=== PATIENT | female | born 1990 | race Caucasian/White ===

== ENCOUNTER 2022-06-05 09:05 | Emergency (ER) | payer OTHER ==
--- NOTE | 2022-06-05 09:29 | ERPHSYRPT ---
- History of Present Illness Time Seen by Provider: 06/05/22 09:23 Source: patient Exam Limitations: no limitations Patient Subjective Stated Complaint: Foreign body-Tampon stuck in vagina Triage Nursing Assessment: Patient ambulated back to ED and transferred self to bed. Patient A+O X3. Patient's skin pink, warm and dry. Patient states she went to bed last night with a tampon inserted, but woke up this am and noted no tampon. Patient states she did urinate in the middle of the night a few times. Patient concerned tampon may stuck in vagina. Patient denies pain or discomfort. Physician History: Foreign body-Tampon stuck in vagina Patient is 31-year-old female came to the emergency room with complaint that there might be a chance that tampon might be stuck in her vagina. She was trying to remove the tampon and then she did not feel like it came out. So she came to the emergency room. She denies any other symptoms. Timing/Duration: today Severity: mild Associated Symptoms: denies symptoms Allergies/Adverse Reactions: No Known Drug Allergies Allergy (Unverified 06/05/22 09:12) Home Medications: No Reportable Medications [No Reported Medications] 06/05/22 [History] Hx Influenza Vaccination/Date Given: No Hx Pneumococcal Vaccination/Date Given: No Immunizations Up to Date: Yes Travel Risk - International Travel Have you traveled outside of the country in past 3 weeks: No - Coronavirus Screening Are you exhibiting any of the following symptoms?: No Close contact with a COVID-19 positive Pt in past 14-21 Days: No - Vaccine Status Have you recieved a Covid-19 vaccination: Yes Superintendent [employer]: [employer] - Vaccination Dates Date of 2cond Vaccination (if applicable): na - Review of Systems Constitutional: No Fever, No Chills Eyes: No Symptoms Ears, Nose, & Throat: No Symptoms Respiratory: No Cough, No Dyspnea Cardiac: No Chest Pain, No Edema, No Syncope Abdominal/Gastrointestinal: No Abdominal Pain, No Nausea, No Vomiting, No Diarrhea Genitourinary Symptoms: No Dysuria Musculoskeletal: No Back Pain, No Neck Pain Skin: No Rash Neurological: No Dizziness, No Focal Weakness, No Sensory Changes Psychological: No Symptoms Endocrine: No Symptoms All Other Systems: Reviewed and Negative - Past Medical History Pertinent Past Medical History: No Neurological History: No Pertinent History ENT History: No Pertinent History Cardiac History: No Pertinent History Respiratory History: No Pertinent History Endocrine Medical History: No Pertinent History Musculoskeletal History: No Pertinent History GI Medical History: No Pertinent History History: No Pertinent History Psycho-Social History: No Pertinent History Female Reproductive Disorders: No Pertinent History - Past Surgical History Past Surgical History: No Neuro Surgical History: No Pertinent History Cardiac: No Pertinent History Respiratory: No Pertinent History Gastrointestinal: No Pertinent History Genitourinary: No Pertinent History Musculoskeletal: No Pertinent History Female Surgical History: Section Other Surgical History: C section X 2 - Social History Smoking Status: Current every day smoker How long have you smoked: years Exposure to second hand smoke: No Drug Use: none Patient Lives Alone: No - Female History Hx Last Menstrual Period: currently Hx Now: No - Nursing Vital Signs Nursing Vital Signs: Initial Vital Signs Temperature 96.5 F 06/05/22 09:13 Pain Scale Pain Intensity 0 - Physical Exam General Appearance: no apparent distress, alert Eye Exam: PERRL/EOMI, eyes nml inspection Ears, Nose, Throat Exam: normal ENT inspection, TMs normal, pharynx normal, moist mucous membranes Neck Exam: normal inspection, non-tender, supple, full range of motion Respiratory Exam: normal breath sounds, lungs clear, No respiratory distress Cardiovascular Exam: regular rate/rhythm, normal heart sounds, normal peripheral pulses Gastrointestinal/Abdomen Exam: soft, normal bowel sounds, No tenderness, No mass Pelvic Exam: normal external exam, vaginal bleeding, other (no tempoon visibel, confirmed visually with speculum and also corroborrated with two nurses present at time of exam) Back Exam: normal inspection, normal range of motion, No CVA tenderness, No vertebral tenderness Extremity Exam: normal inspection, normal range of motion, pelvis stable Neurologic Exam: alert, oriented x 3, cooperative, normal mood/affect, nml cerebellar function, nml station & gait, sensation nml, No motor deficits Skin Exam: normal color, warm, dry, No rash Lymphatic Exam: No adenopathy - Course Nursing assessment & vital signs reviewed: Yes - Progress Progress: improved Counseled pt/family regarding: diagnosis, need for follow-up Medical Desision Making - Discussion of managment Agreed on:: need for follow-up - Diagnostic Testing Diagnostic Testing: Diagnostic tests were ordered,analyzed, and reviewed by me and used in my medica l decision making for this patient. Radiologic studies (if ordered) were read by me initially then discussed with the radiologist . - Risk of complications Minimal Risk: Minimal risk of morbidity - Departure Departure Disposition: Home Clinical Impression: Suspected ingested foreign body not found after observation Condition: Stable Critical Care Time: No Additional Instructions: Discharge/Care Plan NIELS OATES was seen on 06/05/22 in the Emergency Room. The patient was counseled regarding Diagnosis,Lab results, Imaging studies, need for follow up and when to return to the Emergency Room. Prescriptions given: Discharge Note I have spoken with the patient and/or caregivers. I have explained the patient's condition, diagnosis and treatment plan based on the information available to me at this time. I have answered the patient's and/or caregiver's questions and addressed any concerns. The patient and/or caregivers have as good understanding of the patient's diagnosis, condition and treatment plan as can be expected at this point. The vital signs have been stable. The patient's condition is stable and appropriate for discharge from the emergency department. The patient will pursue further outpatient evaluation with the primary care physician or other designated or consulting physician as outlined in the discharge instructions. The patient and/or caregivers are agreeable to this plan of care and follow-up instructions have been explained in detail. The patient and/or caregivers have received these instruction. The patient/and or caregivers are aware that any significant change in condition or worsening of symptoms should prompt an immediate return to this or the closest emergency department or call 911. NIELS OATES was seen on 06/05/22 n the Emergency Room. At that time you were treated for an emergent condition, during your visit Laboratory, Radiology and/or other procedures may have been ordered. It is very important that you follow-up with your Primary Care Physician within the next 24-48 hours to review your Emergency Room visit and the final results of testing that was ordered. Some test results such as Urine Cultures, Blood Cultures, and other cultures if ordered will not be finalized for 24-48 hours. If you do not have a Primary Care Provider please call the medical records department at [phone] to obtain a copy of your results or you may sign into our patient portal to obtain these results by visiting us @ [email or web address] and completing the following steps: 1. Click on the Patient Portal link 2. Click the Patient Self Enrollment Link to complete the enrollment form and entering your 3. Once the enrollment form is completed you will receive an email with a temporary ID and password at the email address you provided. 4. Next choose a user name and password. Your user name must be at least 4 characters long and your password must be at least 4 characters long. 5. Choose a security question from the list and provide your answer to the question. If you already have signed into the Health Portal you may access your Health Care Information 14/11 by the following steps: 1. Login to our website @ [email or web address] 2. Enter your original user name and password. FAQS The [facility] Health Portal is an online tool that contains your Lab Results, Radiology Reports, Visit History, Discharge Instructions and Health Summary Lab and Radiology Results will not be available for 72 hours on the portal. The Portal is a secure site, passwords are encryted and URLs are re-written so they cannot be copied and pasted. You and authorized family members are the only ones who can access your Portal. Also there is a timeout feature that protects your information if you leave the Portal page open. If you have technical difficulty please use the Contact Us link on the page this will allow you to submit any questions you have regarding the Portal or you may contact the Medical Record Department at [phone]. On speculum exam we did not visualize any tampon or any other foreign body in your vagina. 2 other nurses also confirm that finding. If you still feel some on comfort talk to your LANDSCAPING CREW LEADER you or your primary care physician for further evaluation.
== END 2022-06-05 09:33 | disposition home or self-care (01) ==
LOC: ED 09:05
DX: Z03.823 Encounter for observation for suspected inserted (injected) foreign body ruled out (principal); Z72.0 Tobacco use
CPT/HCPCS: 99281

== ENCOUNTER 2023-11-15 02:26 | Emergency (ER) | payer BC, OTHER ==
[2023-11-15 02:37] VITALS: TEMP 97.7
--- NOTE | 2023-11-15 03:41 | XRAY ---
CLINICAL HISTORY: fall/pain COMPARISON: None. TECHNIQUE: X-ray right foot AP, oblique, and lateral: 3 views. FINDINGS: Evidence of transverse fracture proximal shaft of 4th metatarsal bone of right foot without significant displacement. Normal bone mineral density was noted. A radiological examination of the right foot demonstrates no lytic or sclerotic bone lesion. Normal metatarsophalangeal and interphalangeal joint spaces. Articular margins are intact. No focal abnormality was seen in the right great toe. Soft tissues appear unremarkable. Plantar calcaneal spur noted. IMPRESSION: 1. Transverse fracture of the proximal shaft of the 4th metatarsal bone of the right foot without significant displacement. 2. Plantar calcaneal spur. DISCLAIMER:A subtle bone abnormality or fracture may not be readily apparent on X-rays, thus clinical correlation and further imaging including follow-up CT, MRI, or follow-up X-rays are advised as needed.[facility] was called at [phone] at 2:37 AM FUNERAL SERVICE PRACTITIONER/EMBALMER, 11/15/[address] Malin was informed regarding the presence of Important Medical Findings on this report. Electronically Signed by: Yesi Barnett MD. (11/15/2023 03:38:27 EDT)
--- NOTE | 2023-11-15 03:50 | ERPHSYRPT ---
- History of Present Illness Time Seen by Provider: 11/15/23 02:40 Source: patient Exam Limitations: no limitations Patient Subjective Stated Complaint: tripped over vacuum cord and fell, pain to rt foot Triage Nursing Assessment: pt limped into ER with SBA x1 from spouse. Pt alert and oriented x4. Pt was vacuuming and tripped over the sweeper cord approx 1 hour ago. Pt c/o rt foot pain to the top of the foot. Top of foot is tender to touch, scant swelling noted, no bruising noted. Rt pedal pulse present. Physician History: 32-year-old female presents to our ED for evaluation of pain to her right foot. Patient states she was vacuuming and tripped over her cord. Patient felt a pop and complains of pain at the dorsal lateral aspect of her right foot. Pain described as an ache that is localized no radiation. Minimal pain at rest. Patient declined pain medication. No other injuries reported. Patient voices no other complaints or concerns at this time. Portions of this note were created with voice recognition technology. There may be grammatical, spelling, punctuation or sound alike errors Method of Injury: fell Occurred: just prior to arrival Quality: constant Severity of Pain-Max: moderate Severity of Pain-Current: mild Lower Extremities Pain: foot: right Modifying Factors: Improves With: movement Associated Symptoms: none Allergies/Adverse Reactions: No Known Drug Allergies Allergy (Verified 11/15/23 02:37) Home Medications: No Reportable Medications [No Reported Medications] 06/05/22 [History] Hx Tetanus, Diphtheria Vaccination/Date Given: Yes Hx Influenza Vaccination/Date Given: Yes Hx Pneumococcal Vaccination/Date Given: No Travel Risk - International Travel Have you traveled outside of the country in past 3 weeks: No - Emerging Infectious Disease Are you exhibiting symptoms associated with any current EIDs: No - Review of Systems Constitutional: No Symptoms, No Fever, No Chills Eyes: No Symptoms Ears, Nose, & Throat: No Symptoms Respiratory: No Symptoms, No Cough, No Dyspnea Cardiac: No Symptoms, No Chest Pain, No Edema, No Syncope Abdominal/Gastrointestinal: No Symptoms, No Abdominal Pain, No Nausea, No Vomiting, No Diarrhea Genitourinary Symptoms: No Symptoms, No Dysuria Musculoskeletal: No Symptoms, No Back Pain, No Neck Pain Skin: No Symptoms, No Rash Neurological: No Symptoms, No Dizziness, No Focal Weakness, No Sensory Changes Psychological: No Symptoms Endocrine: No Symptoms Hematologic/Lymphatic: No Symptoms Immunological/Allergic: No Symptoms All Other Systems: Reviewed and Negative - Past Medical History Pertinent Past Medical History: No Neurological History: No Pertinent History ENT History: No Pertinent History Cardiac History: No Pertinent History Respiratory History: No Pertinent History Endocrine Medical History: No Pertinent History Musculoskeletal History: No Pertinent History GI Medical History: No Pertinent History History: No Pertinent History Psycho-Social History: No Pertinent History Female Reproductive Disorders: No Pertinent History - Past Surgical History Past Surgical History: Yes Neuro Surgical History: No Pertinent History Cardiac: No Pertinent History Respiratory: No Pertinent History Gastrointestinal: No Pertinent History Genitourinary: No Pertinent History Musculoskeletal: No Pertinent History Female Surgical History: Section Other Surgical History: C section X 2 - Female History Hx Last Menstrual Period: 10/29/23 Hx Now: No - Social History Smoking Status: Current every day smoker How long have you smoked: 15 yrs Exposure to second hand smoke: Yes Drug Use: none Patient Lives Alone: No - Social Determinants of Health Will the patient participate in the screening: Yes Do you worry about a steady place to live?: No Do you have any problems with any of the following?: No known problems In the past 12 months,have you had to go without utilities?: No Transportation Issues: No Has anyone in your support network made you feel unsafe?: No Have you or anyone in your house had to go without enough: No - Nursing Vital Signs Nursing Vital Signs: Initial Vital Signs Temperature 97.7 F 11/15/23 02:32 Pulse Rate 72 11/15/23 02:32 Respiratory Rate 18 11/15/23 02:32 Blood Pressure 121/79 11/15/23 02:32 O2 Sat by Pulse Oximetry 100 11/15/23 02:32 Pain Scale Pain Intensity 0 - Physical Exam General Appearance: no apparent distress, alert Eyes, Ears, Nose, Throat Exam: moist mucous membranes Neck Exam: non-tender, supple Cardiovascular/Respiratory Exam: chest non-tender, normal breath sounds, regular rate/rhythm, no respiratory distress Gastrointestinal/Abdominal Exam: non-tender, guarding Back Exam: normal inspection, No vertebral tenderness Hips Exam: bilateral: non-tender, normal inspection, normal range of motion, no evidence of injury Legs Exam: bilateral leg: non-tender, normal inspection, normal range of motion, no evidence of injury Knees Exam: bilateral knee: non-tender, normal inspection, normal range of motion, no evidence of injury Ankle Exam: bilateral ankle: non-tender, normal inspection, normal range of motion, no evidence of injury Foot Exam: right foot: pain, soft tissue tenderness, swelling, other (The involved right foot is neurovascular intact distally compartments soft cap re fill less than 2 seconds. Overlying soft tissue intact.), left foot: non- tender, normal inspection, normal range of motion, no evidence of injury Neuro/Tendon Exam: normal sensation, normal motor functions Mental Status Exam: alert, oriented x 3, cooperative Skin Exam: normal color, warm, dry SpO2 Interpretation: normal SpO2: 98 O2 Delivery: Room Air - Course Nursing assessment & vital signs reviewed: Yes - Radiology Exams Foot X-ray Interpretation: Teleradiologist Report (Transverse fracture of the fourth metatarsal. Heel spur) Ordered Tests: Active Orders 24 hr Category Date Time Status FOOT (MINIMUM 3 VIEWS) Stat Exams 11/15/23 02:37 Completed - Progress Progress: improved Progress Note: 32-year-old female presents to our ED for evaluation of pain to her right foot. Patient tripped on a cord just prior to arrival. Physical exam reveals tenderness to palpation along the dorsal lateral aspect of the right foot. Minimal soft tissue swelling. X-ray reveals a nondisplaced transverse fracture of the fourth metatarsal proximally. There is a heel spur. Patient declined pain medication. Orthopedic shoe and bilateral axillary crutches provided. Patient referred to orthopedic clinic for follow-up tomorrow. Plan of care discussed with patient. She voices no other complaints or concerns at this time. Portions of this note were created with voice recognition technology. There may be grammatical, spelling, punctuation or sound alike errors Complexity problem addressed is moderate acute complicated. No critical care time. Complexity of data reviewed and analyzed is moderate. Dr. Malin independently reviewed the x-ray of the right foot. There is a questionable subtle fracture of the right fourth metatarsal. I requested radiology to read the x-ray for an official read. Radiologist read the report accordingly. There is a transverse fracture of the fourth metacarpal. Risk of complication and or risk of morbidity/mortality patient management is moderate. Patient received bilateral axillary crutches and orthopedic shoe. Vital stable. Time spent to discharge patient approximately 10 minutes. Plan of care established for shared decision making. No social determinants of health present impede follow-up. Portions of this note were created with voice recognition technology. There may be grammatical, spelling, punctuation or sound alike errors 11/15/23 03:52 Counseled pt/family regarding: diagnosis, need for follow-up, rad results - Departure Departure Disposition: Home Clinical Impression: Transverse fracture of fourth metatarsal, Heel spur Condition: Stable Critical Care Time: No Referrals: DOCTOR,NO FAMILY [Primary Care Provider] - Follow up/PCP as directed SENAIT GUAJARDO NP [NON-STAFF PHY W/O PRIVILEGES] - Follow up/PCP as directed Additional Instructions: Discharge/Care Plan NIELS OATES was seen on 11/15/23 in the Emergency Room. The patient was counseled regarding Diagnosis,Lab results, Imaging studies, need for follow up and when to return to the Emergency Room. Prescriptions given: Discharge Note I have spoken with the patient and/or caregivers. I have explained the patient's condition, diagnosis and treatment plan based on the information available to me at this time. I have answered the patient's and/or caregiver's questions and addressed any concerns. The patient and/or caregivers have as good understanding of the patient's diagnosis, condition and treatment plan as can be expected at this point. The vital signs have been stable. The patient's condition is stable and appropriate for discharge from the emergency department. The patient will pursue further outpatient evaluation with the primary care physician or other designated or consulting physician as outlined in the discharge instructions. The patient and/or caregivers are agreeable to this plan of care and follow-up instructions have been explained in detail. The patient and/or caregivers have received these instruction. The patient/and or caregivers are aware that any significant change in condition or worsening of symptoms should prompt an immediate return to this or the closest emergency department or call 911.
[2023-11-15 04:07] VITALS: BP 111/76; PULSE 69; RESP 17; O2SAT 99
== END 2023-11-15 04:12 | disposition home or self-care (01) ==
LOC: ED 02:26
DX: S92.341A Displaced fracture of fourth metatarsal bone, right foot, initial encounter for closed fracture (principal); W01.0XXA Fall on same level from slipping, tripping and stumbling without subsequent striking against object, initial encounter; Y93.E3 Activity, vacuuming; M77.31 Calcaneal spur, right foot; Z72.0 Tobacco use
CPT/HCPCS: 73630; 99283

== ENCOUNTER 2024-05-02 21:29 | Emergency (ER) | payer OTHER ==
[2024-05-02 22:00] VITALS: TEMP 97.2; O2SAT 98
[2024-05-02] MEDS ORDERED: Ativan 1 MG ONE (22:22)
--- NOTE | 2024-05-02 22:23 | ERPHSYRPT ---
- History of Present Illness Time Seen by Provider: 05/02/24 21:42 Historian: patient, family Exam Limitations: no limitations Patient Subjective Stated Complaint: pt states when she laid down tonight she began having anxiety, feeling like her heart was beating very fast Triage Nursing Assessment: pt alert and oriented, answers questions approp. pt ambulates to room with steady gait noted. respirations nonlabored. skin warm and dry. heart rate 124, sinus tach on monitor. Physician History: 33 years old female with history of anxiety not taking any medications, nicotine vaping presented in the ER with sudden onset palpitations, feeling anxiousness when she lie down to sleep. Patient reports racing of the heart, throat closing/choking sensation and feels everything was closing on her. Mild shortness of breath, tachypnea and mild chest tightness all over. It started around 8:45 PM tonight, lasted for few minutes to half an hour and started to improve and had another round and patient is almost completely back to normal during my evaluation. Does report having history of similar symptoms but not this severe. No history of coronary artery disease. Denies any chest pain currently. Allergies/Adverse Reactions: No Known Drug Allergies Allergy (Verified 05/02/24 21:58) Home Medications: No Reportable Medications [No Reported Medications] 06/05/22 [History] Hx Tetanus, Diphtheria Vaccination/Date Given: Yes Hx Influenza Vaccination/Date Given: No Hx Pneumococcal Vaccination/Date Given: No Immunizations Up to Date: Yes Travel Risk - International Travel Have you traveled outside of the country in past 3 weeks: No - Emerging Infectious Disease Are you exhibiting symptoms associated with any current EIDs: No - Review of Systems Constitutional: No Symptoms Eyes: No Symptoms Ears, Nose, & Throat: No Symptoms Respiratory: No Symptoms Cardiac: Palpitations Abdominal/Gastrointestinal: No Symptoms Genitourinary Symptoms: No Symptoms Musculoskeletal: No Symptoms Skin: No Symptoms Neurological: No Symptoms Psychological: Anxiety Endocrine: No Symptoms Hematologic/Lymphatic: No Symptoms - Past Medical History Pertinent Past Medical History: No Neurological History: No Pertinent History ENT History: No Pertinent History Cardiac History: No Pertinent History Respiratory History: No Pertinent History Endocrine Medical History: No Pertinent History Musculoskeletal History: No Pertinent History GI Medical History: No Pertinent History History: No Pertinent History Psycho-Social History: No Pertinent History Female Reproductive Disorders: No Pertinent History - Past Surgical History Past Surgical History: Yes Neuro Surgical History: No Pertinent History Cardiac: No Pertinent History Respiratory: No Pertinent History Gastrointestinal: No Pertinent History Genitourinary: No Pertinent History Musculoskeletal: No Pertinent History Female Surgical History: Section Other Surgical History: C section X 2 - Female History Hx Last Menstrual Period: last month Hx Now: No (unsure) - Social History Smoking Status: Former smoker How long have you smoked: 15 yrs Exposure to second hand smoke: Yes Drug Use: none Patient Lives Alone: No - Social Determinants of Health Will the patient participate in the screening: Unable to obtain - Nursing Vital Signs Nursing Vital Signs: Initial Vital Signs Pulse Rate 87 05/02/24 21:38 Respiratory Rate 17 05/02/24 21:38 Blood Pressure 130/80 05/02/24 21:38 O2 Sat by Pulse Oximetry 97 05/02/24 21:38 Pain Scale Pain Intensity 2 - Physical Exam General Appearance: no apparent distress, alert, anxiety Eye Exam: PERRL/EOMI Ears, Nose, Throat Exam: normal ENT inspection Neck Exam: normal inspection, full range of motion Respiratory Exam: normal breath sounds, lungs clear Cardiovascular Exam: normal heart sounds, tachycardia Gastrointestinal/Abdomen Exam: soft, normal bowel sounds, No tenderness Back Exam: normal inspection Extremity Exam: normal inspection, normal range of motion Neurologic Exam: alert, oriented x 3, cooperative, flexographic press set up operator II-XII nml as tested, nml cerebellar function, nml station & gait, sensation nml, No normal mood/affect, No motor deficits Skin Exam: normal color SpO2 Interpretation: normal SpO2: 98 O2 Delivery: Room Air - Course EKG Interpreted by Me: RATE (120), Sinus Tach, NORMAL AXIS, NORMAL INTERVALS, Non-specific ST Changes Ordered Tests: Active Orders 24 hr Category Date Time Status CBC W DIFF Stat Lab 05/02/24 22:15 Completed CMP Stat Lab 05/02/24 22:15 Completed HCG QUALITATIVE, SERUM Stat Lab 05/02/24 22:15 Completed HCG, Quantitative (Inhouse) Stat Lab 05/02/24 23:01 Ordered TROPONIN Q4H Lab 05/02/24 22:15 Completed TROPONIN Q4H Lab 05/03/24 02:30 Ordered TROPONIN Q4H Lab 05/03/24 06:30 Ordered TSH [TSH, 3RD Generation] Stat Lab 05/02/24 22:15 Completed Medication Summary Generic Name Dose Route Start Last Admin Trade Name Freq PRN Reason Stop Dose Admin Sodium Chloride 1,000 mls @ 999 mls/hr 05/02/24 23:01 Sodium Chloride 0.9% 1000 Ml IV 05/03/24 00:01 .Q1H1M STA Discontinued Medications Generic Name Dose Route Start Last Admin Trade Name Leatha PRN Reason Stop Dose Admin Sodium Chloride Confirm 05/02/24 23:19 Sodium Chloride 0.9% 1000 Ml Administered 05/02/24 23:20 Dose 1,000 mls @ ud .ROUTE .STK-MED ONE Lorazepam 1 mg 05/02/24 22:20 05/02/24 22:31 Lorazepam 0.5 Mg Tablet PO 05/02/24 22:21 Not Given STAT ONE Lorazepam Confirm 05/02/24 22:22 Lorazepam 1 Mg Tablet Administered 05/02/24 22:23 Dose 1 mg .ROUTE .STK-MED ONE Lorazepam 1 mg 05/02/24 22:24 05/02/24 22:25 Lorazepam 1 Mg Tablet PO 05/02/24 22:25 1 mg STAT ONE Administration Lab/Rad Data: Laboratory Result Diagrams 05/02/24 22:15 05/02/24 22:15 Laboratory Results 05/02/24 05/02/24 05/02/24 Range/Units 22:15 22:15 22:15 WBC (3.98-10.04) x10^3/uL RBC (3.93-5.22) x10^6/uL Hgb (11.2-15.7) g/dL Hct (34.1-44.9) % MCV (79.4-94.8) fL MCH (25.6-32.2) pg MCHC (32.2-35.5) g/dL RDW (11.7-14.4) % Plt Count (182-369) x10^3/uL MPV (9.4-12.3) fL Gran % (34.0-71.1) % Immature Gran % (Auto) (0.001-0.429) % Nucleat RBC Rel Count (0.00-0.2) % Eos # (Auto) (0.04-0.36) x10^3/uL Immature Gran # (Auto) (0.001-0.031) x10^3u/L Absolute Lymphs (auto) (1.18-3.74) x10^3/uL Absolute Monos (auto) (0.24-0.86) x10^3/uL Absolute Nucleated RBC (0.00-0.012) x10^3u/L Lymphocytes % (19.3-51.7) % Monocytes % (4.7-12.5) % Eosinophils % (0.7-5.8) % Basophils % (0.1-1.2) % Absolute Granulocytes (1.56-6.13) x10^3/uL Basophils # (0.01-0.08) x10^3/uL Sodium (135-145) mmol/L Potassium (3.5-5.1) mmol/L Chloride (98-107) mmol/L Carbon Dioxide (22-30) mmol/L Anion Gap (5-15) MEQ/L BUN (7-17) mg/dL Creatinine (0.52-1.04) mg/dL Estimated GFR ML/MIN Glucose (74-106) mg/dL Calcium (8.4-10.2) mg/dL Total Bilirubin (0.2-1.3) mg/dL AST (14-36) U/L ALT (0-35) U/L Alkaline Phosphatase (38-126) U/L Troponin I < 0.012 (0.000-0.033) ng/mL Serum Total Protein (6.3-8.2) g/dL Albumin (3.5-5.0) g/dL TSH 3rd Generation 4.162 (0.470-4.680) mIU/L Serum HCG, Qual POSITIVE (NEGATIVE) 05/02/24 05/02/24 Range/Units 22:15 22:15 WBC 10.5 H (3.98-10.04) x10^3/uL RBC 4.30 (3.93-5.22) x10^6/uL Hgb 13.9 (11.2-15.7) g/dL Hct 38.1 (34.1-44.9) % MCV 88.6 (79.4-94.8) fL MCH 32.3 H (25.6-32.2) pg MCHC 36.5 H (32.2-35.5) g/dL RDW 11.6 L (11.7-14.4) % Plt Count 304 (182-369) x10^3/uL MPV 10.5 (9.4-12.3) fL Gran % 57.9 (34.0-71.1) % Immature Gran % (Auto) 0.3 (0.001-0.429) % Nucleat RBC Rel Count 0.0 (0.00-0.2) % Eos # (Auto) 0.05 (0.04-0.36) x10^3/uL Immature Gran # (Auto) 0.03 (0.001-0.031) x10^3u/L Absolute Lymphs (auto) 3.39 (1.18-3.74) x10^3/uL Absolute Monos (auto) 0.91 H (0.24-0.86) x10^3/uL Absolute Nucleated RBC 0.00 (0.00-0.012) x10^3u/L Lymphocytes % 32.2 (19.3-51.7) % Monocytes % 8.6 (4.7-12.5) % Eosinophils % 0.5 L (0.7-5.8) % Basophils % 0.5 (0.1-1.2) % Absolute Granulocytes 6.10 (1.56-6.13) x10^3/uL Basophils # 0.05 (0.01-0.08) x10^3/uL Sodium 138 (135-145) mmol/L Potassium 3.3 L (3.5-5.1) mmol/L Chloride 104 (98-107) mmol/L Carbon Dioxide 22 (22-30) mmol/L Anion Gap 15.6 H (5-15) MEQ/L BUN 11 (7-17) mg/dL Creatinine 0.69 (0.52-1.04) mg/dL Estimated GFR 118.2 ML/MIN Glucose 136 H (74-106) mg/dL Calcium 9.7 (8.4-10.2) mg/dL Total Bilirubin 0.50 (0.2-1.3) mg/dL AST 24 (14-36) U/L ALT 27 (0-35) U/L Alkaline Phosphatase 62 (38-126) U/L Troponin I (0.000-0.033) ng/mL Serum Total Protein 7.1 (6.3-8.2) g/dL Albumin 4.4 (3.5-5.0) g/dL TSH 3rd Generation (0.470-4.680) mIU/L Serum HCG, Qual (NEGATIVE) - Progress Progress: improved, re-examined Air Movement: good Progress Note: 05/02/24 23:28 33 years old is evaluated in the ER for sudden onset palpitations while she was at home with symptoms consistent with anxiety/panic attack. Her symptoms are remarkably improved during my evaluation. Patient was tachycardic on initial presentation, She is given Ativan, on reevaluation she is back to her baseline and her tachycardia has improved with a heart rate in the 80s. EKG is sinus tach with no acute ST elevations. Normal white count, chemistries with mildly low potassium which I believe is secondary to hyperventilation and mildly elevated gap, negative troponins. Normal TSH, offered fluids which patient does not wanted. She has a positive serum test, quant is pending. Patient is not using any contraceptives currently. She declined to have chest x-ray and does not want fluids or any other further workup/second troponin and would like to go home. She understands the risk of going home. Patient is convinced that she has anxiety attack and I kind of agree with her presentation and current course of symptoms. She is counseled on vitamins and not to take anything which is harmful during the and outpatient follow-up with her OB. Discussed signs symptoms of worsening needing return to ER which she seems understanding. Blood Culture(s) Obtained: No Antibiotics given: No Counseled pt/family regarding: lab results, diagnosis, need for follow-up Medical Desision Making - Independent Historian Additional History obtained from: Spouse - Diagnostic Testing Diagnostic test were ordered, analyzed, and reviewed by me: Yes - Risk of complications The pt has a mod risk of morbidity or mortality based on: Need for prescription drug management - Departure Departure Disposition: Home Clinical Impression: Panic attack, Condition: Stable Critical Care Time: No Referrals: FREDA BLACKBURN NP [Primary Care Provider] - Follow up with PCP 1 day Instructions: Panic Attack ED Additional Instructions: Drink plenty of fluids to keep yourself well-hydrated. Start taking vitamins. Follow-up with your primary care and OB for reevaluation. Return to ER for worsening of symptoms like chest pain palpitations shortness of breath or if having pelvic/abdominal pain, vaginal bleeding discharge etc.
[2024-05-02] MEDS: Ativan 1 MG PO ONE (22:25)
[2024-05-02 22:27] LABS: BASOPHIL % 0.5 % (0.1-1.2); Basophil (Absolute #) 0.05 x10^3/uL (0.01-0.08); Eosinophil % 0.5 % (0.7-5.8); Eosinophil (Absolute #) 0.05 x10^3/uL (0.04-0.36); Hematocrit 38.1 % (34.1-44.9); Hemoglobin 13.9 g/dL (11.2-15.7); IMMATURE GRAN # 0.03 x10^3u/L (0.001-0.031); IMMATURE GRAN % 0.3 % (0.001-0.429); Lymphocyte (Absolute #) 3.39 x10^3/uL (1.18-3.74); Lymphocytes % 32.2 % (19.3-51.7); Mean Cell Volume 88.6 fL (79.4-94.8); Mean Corpuscular Hemoglobin 32.3 pg (25.6-32.2); Mean Corpuscular Hgb Concent. 36.5 g/dL (32.2-35.5); Mean Platelet Volume 10.5 fL (9.4-12.3); Monocyte (Absolute #) 0.91 x10^3/uL (0.24-0.86); Monocytes % 8.6 % (4.7-12.5); Neutrophil % 57.9 % (34.0-71.1); Platelet Count 304 x10^3/uL (182-369); Red Cell Distribution Width 11.6 % (11.7-14.4); White Blood Count 10.5 x10^3/uL (3.98-10.04)
[2024-05-02] MEDS: Ativan 0.5 MG PO ONE (22:31)
[2024-05-02 22:36] LABS: HCG SERUM TEST POSITIVE (NEGATIVE)
[2024-05-02 22:41] LABS: ALBUMIN 4.4 g/dL (3.5-5.0); ANION GAP 15.6 MEQ/L (5-15); BILIRUBIN,TOTAL 0.5 mg/dL (0.2-1.3); Calcium 9.7 mg/dL (8.4-10.2); Creatinine 1 0.69 mg/dL (0.52-1.04); EST GLOMERULAR FILTRATION RATE 118.2 ML/MIN; Potassium 3.3 mmol/L (3.5-5.1); Total Protein 7.1 g/dL (6.3-8.2)
[2024-05-02] MEDS ORDERED: Sodium Chloride 0.9% 1000 ML 1,000 ML IV STA (23:01)
[2024-05-02] MEDS ORDERED: Sodium Chloride 0.9% 1000 ML 1,000 ML ONE (23:19)
[2024-05-02 23:33] VITALS: BP 84/60; PULSE 82; RESP 15
== END 2024-05-02 23:42 | disposition home or self-care (01) ==
LOC: ED 21:29
DX: F41.0 Panic disorder [episodic paroxysmal anxiety] (principal); R00.2 Palpitations; R07.9 Chest pain, unspecified; Z33.1 Pregnant state, incidental
CPT/HCPCS: 36415; 80053; 84443; 84484; 84702; 84703; 85025; 99283; A9270-GY

== ENCOUNTER 2024-05-05 20:07 | Emergency (ER) | payer OTHER ==
[2024-05-05 20:23] VITALS: TEMP 96.4; O2SAT 100
--- NOTE | 2024-05-05 20:33 | ERPHSYRPT ---
- History of Present Illness Source: patient Exam Limitations: no limitations Patient Subjective Stated Complaint: pt states that she was here a couple days ago and refused a chest xray because she is . pt states she doesn't know if she should have got one Triage Nursing Assessment: pt ambulated into the er; pt is axo x4; pt is anxious; skin PDW; no respiratory distress present; vitals wnl Physician History: Patient was here 2 days ago diagnosed with anxiety disorder and at that time they recommended she got a chest x-ray. She did not do that and she has been at home ruminating on if she needs an x-ray or not. She decided to come in to get an x-ray. Her anxiety is still pretty active. She just found out she was And that is probably contributing to it.She appears to have some anxiety. She says she has had anxiety throughout most of her life but the last 2 panic attacks have been a little bit more severe than most. 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 She said that she has got a lot of social issues going on right now.She is not having any chest pain. She says that when these happen she hyperventilates and feels like she cannot catch her air and it will resolve on its own. She has not been breathing into a paper bag or anything I told her about that.She has no other complaints at this time. Allergies/Adverse Reactions: No Known Drug Allergies Allergy (Verified 05/05/24 20:13) Home Medications: Vit No.179/Iron/Folic [ Tablet] 1 each PO DAILY 05/05/24 [History] Hx Tetanus, Diphtheria Vaccination/Date Given: Yes Hx Influenza Vaccination/Date Given: No Hx Pneumococcal Vaccination/Date Given: No Travel Risk - International Travel Have you traveled outside of the country in past 3 weeks: No - Emerging Infectious Disease Are you exhibiting symptoms associated with any current EIDs: No - Review of Systems Constitutional: No Symptoms Eyes: No Symptoms Respiratory: No Symptoms Psychological: Anxiety - Past Medical History Pertinent Past Medical History: No Neurological History: No Pertinent History ENT History: No Pertinent History Cardiac History: No Pertinent History Respiratory History: No Pertinent History Endocrine Medical History: No Pertinent History Musculoskeletal History: No Pertinent History GI Medical History: No Pertinent History History: No Pertinent History Psycho-Social History: No Pertinent History Female Reproductive Disorders: No Pertinent History - Past Surgical History Past Surgical History: Yes Neuro Surgical History: No Pertinent History Cardiac: No Pertinent History Respiratory: No Pertinent History Gastrointestinal: No Pertinent History Genitourinary: No Pertinent History Musculoskeletal: No Pertinent History Female Surgical History: Section Other Surgical History: C section X 2 - Female History Hx Last Menstrual Period: 10/29/23 Hx Now: Yes Gestational Age: . - Social History Smoking Status: Current every day smoker How long have you smoked: 15 yrs Exposure to second hand smoke: No Drug Use: none Patient Lives Alone: No - Social Determinants of Health Will the patient participate in the screening: Yes Do you worry about a steady place to live?: No Do you have any problems with any of the following?: No known problems In the past 12 months,have you had to go without utilities?: No Transportation Issues: No Has anyone in your support network made you feel unsafe?: No Have you or anyone in your house had to go without enough: No - Nursing Vital Signs Nursing Vital Signs: Initial Vital Signs Temperature 96.4 F 05/05/24 20:14 Pulse Rate 93 H 05/05/24 20:14 Respiratory Rate 18 05/05/24 20:14 Blood Pressure 116/56 05/05/24 20:14 O2 Sat by Pulse Oximetry 100 05/05/24 20:14 Pain Scale Pain Intensity 0 - Physical Exam General Appearance: no apparent distress, anxiety Eye Exam: PERRL/EOMI Respiratory Exam: normal breath sounds, chest tenderness, lungs clear Cardiovascular Exam: regular rate/rhythm, normal heart sounds Neurologic Exam: alert, oriented x 3, cooperative Skin Exam: normal color, warm, dry SpO2: 100 - Course Nursing assessment & vital signs reviewed: Yes - Progress Progress: improved Progress Note: Patient appears to have anxiety. She is so I am just going to have her try some Benadryl for now. She is to follow-up with her primary care doctor and return if symptoms worsen. I do not believe that there is anything going on like a PE or cardiac issues. She had a EKG at her last visit and I reviewed th at it was normal. 05/05/24 20:32 Medical Desision Making - Independent Historian Additional History obtained from: Spouse - Risk of complications Minimal Risk: Minimal risk of morbidity - Departure Departure Disposition: Home Clinical Impression: Panic attack Condition: Stable Critical Care Time: No Referrals: FREDA BLACKBURN NP [Primary Care Provider] - Follow up/PCP as directed Instructions: Panic disorder Additional Instructions: Try taking Benadryl 25 to 50 mg 3 times a day as needed for the anxiety
[2024-05-05] MEDS ORDERED: BENADRYL 50 MG/ML ONE (20:41)
[2024-05-05] MEDS: BENADRYL 50 MG/ML IM ONE (20:42)
[2024-05-05 21:08] VITALS: BP 107/56; PULSE 87; RESP 16
== END 2024-05-05 21:12 | disposition home or self-care (01) ==
LOC: ED 20:07
DX: F41.0 Panic disorder [episodic paroxysmal anxiety] (principal); Z72.0 Tobacco use; Z33.1 Pregnant state, incidental
CPT/HCPCS: 96372; 99282; 99283; J1200

== ENCOUNTER 2025-01-02 18:13 | Emergency (ER) | payer OTHER | END 2025-01-02 19:11 | disposition left against medical advice (07) | LOC: ED 18:13 | DX: Z53.21 Procedure and treatment not carried out due to patient leaving prior to being seen by health care provider (principal) ==

== ENCOUNTER 2025-02-01 21:31 | Emergency (ER) | payer OTHER ==
--- NOTE | 2025-02-01 21:43 | ERPHSYRPT ---
- History of Present Illness Time Seen by Provider: 02/01/25 21:35 Historian: patient Exam Limitations: no limitations Physician History: 34-year-old female presents to the emergency room with chest pain has been ongoing since the morning patient reports she woke up chest pain-free but started developing it shortly thereafter she reports she has been substernal nonradiating nonreproducible she reports she is a smoker reports she has had a cough that is more chronic in nature denies any sick contacts denies any nausea vomiting diarrhea denies any stents now in ED for further eval Timing/Duration: today Activities at Onset: none Quality: aching Location: central Chest Pain Radiation: no radiation Severity of Pain-Max: mild Severity of Pain-Current: mild Modifying Factors: Improves With: nothing Associated Symptoms: cough, No nausea, No vomiting, No hurts to breathe, No chills, No fever, No fatigue Nitro Today/Relief: no nitro taken today Aspirin Treatment Today: no aspirin today Allergies/Adverse Reactions: No Known Drug Allergies Allergy (Verified 02/01/25 21:33) Home Medications: Buspirone HCl [Bucapsol] 1 tab PO DAILY 02/01/25 [History] Hx Tetanus, Diphtheria Vaccination/Date Given: Yes Hx Influenza Vaccination/Date Given: No Hx Pneumococcal Vaccination/Date Given: No Travel Risk - Emerging Infectious Disease Are you exhibiting symptoms associated with any current EIDs: No - Review of Systems Constitutional: No Fever, No Chills Eyes: No Symptoms Ears, Nose, & Throat: No Symptoms Respiratory: Cough Cardiac: Chest Pain Abdominal/Gastrointestinal: No Abdominal Pain, No Nausea, No Vomiting, No Diarrhea Genitourinary Symptoms: No Dysuria Musculoskeletal: No Back Pain, No Neck Pain Skin: No Rash Neurological: No Dizziness, No Focal Weakness, No Sensory Changes Psychological: No Symptoms Endocrine: No Symptoms All Other Systems: Reviewed and Negative - Past Medical History Pertinent Past Medical History: Yes Neurological History: No Pertinent History ENT History: No Pertinent History Cardiac History: No Pertinent History Respiratory History: No Pertinent History Endocrine Medical History: No Pertinent History Musculoskeletal History: No Pertinent History GI Medical History: No Pertinent History History: No Pertinent History Psycho-Social History: Anxiety, Depression Female Reproductive Disorders: No Pertinent History - Past Surgical History Past Surgical History: Yes Neuro Surgical History: No Pertinent History Cardiac: No Pertinent History Respiratory: No Pertinent History Gastrointestinal: No Pertinent History Genitourinary: No Pertinent History Musculoskeletal: No Pertinent History Female Surgical History: Section Other Surgical History: previous sections x3 - Female History Hx Last Menstrual Period: 10/29/23 Hx Now: No - Social History Smoking Status: Current every day smoker How long have you smoked: vapes Exposure to second hand smoke: No Drug Use: none - Social Determinants of Health Will the patient participate in the screening: Yes Do you worry about a steady place to live?: No In the past 12 months,have you had to go without utilities?: No Transportation Issues: No Has anyone in your support network made you feel unsafe?: No Have you or anyone in your house had to go w/o enough food: No - Nursing Vital Signs Nursing Vital Signs: Initial Vital Signs Pulse Rate 78 02/01/25 21:33 Respiratory Rate 14 02/01/25 21:33 Blood Pressure 137/94 02/01/25 21:33 O2 Sat by Pulse Oximetry 97 02/01/25 21:33 Pain Scale Pain Intensity 0 - Physical Exam General Appearance: no apparent distress, alert Eye Exam: PERRL/EOMI, eyes nml inspection Ears, Nose, Throat Exam: normal ENT inspection, moist mucous membranes Neck Exam: normal inspection, non-tender, supple, full range of motion Respiratory Exam: normal breath sounds, lungs clear, No respiratory distress Cardiovascular Exam: regular rate/rhythm, normal heart sounds Gastrointestinal/Abdomen Exam: soft, No tenderness, No mass Back Exam: normal inspection, No CVA tenderness, No vertebral tenderness Extremity Exam: normal inspection, normal range of motion Neurologic Exam: alert, oriented x 3, cooperative, normal mood/affect, sensation nml, No motor deficits Skin Exam: normal color, warm, dry - Course Nursing assessment & vital signs reviewed: Yes EKG Interpreted by Me: RATE, Sinus Rhythm (91), Left [place] Deviation, Non- specific ST Changes (no STEMI) - Radiology Exams Chest X-ray Interpretation: Interpreted by me, No Pneumonia, No Pneumothorax, No Infiltrates Ordered Tests: Active Orders 24 hr Category Date Time Status [employer] STAT Care 02/01/25 21:35 Active EKG-ER Only STAT Care 02/01/25 21:35 Active IV Insertion STAT Care 02/01/25 21:35 Active Pulse Oximetry (ED) STAT Care 02/01/25 21:35 Active CHEST 1 VIEW (PORTABLE) Stat Exams 02/01/25 21:35 Taken CBC W DIFF Stat Lab 02/01/25 21:52 Completed CK-Creatinine Phosphokinase Stat Lab 02/01/25 21:52 Completed CMP Stat Lab 02/01/25 21:52 Completed CULTURE,URINE Stat Lab 02/01/25 22:35 Received D-DIMER QUANTITATIVE Stat Lab 02/01/25 21:52 Completed HCG QUALITATIVE, URINE Stat Lab 02/01/25 22:38 Completed NT PRO BNPII Stat Lab 02/01/25 21:52 Completed TROPONIN Stat Lab 02/01/25 21:52 Completed UA W/RFX UR CULTURE Stat Lab 02/01/25 22:35 Completed Medication Summary Discontinued Medications Generic Name Dose Route Start Last Admin Trade Name Freq PRN Reason Stop Dose Admin Cephalexin HCl 500 mg 02/01/25 22:57 Cephalexin Mh500 Mg Capsule PO 02/01/25 22:58 STAT ONE Lab/Rad Data: Laboratory Result Diagrams 02/01/25 21:52 02/01/25 21:52 Laboratory Results 02/01/25 02/01/25 02/01/25 Range/Units 22:38 22:35 21:52 WBC (3.98-10.04) x10^3/uL RBC (3.93-5.22) x10^6/uL Hgb (11.2-15.7) g/dL Hct (34.1-44.9) % MCV (79.4-94.8) fL MCH (25.6-32.2) pg MCHC (32.2-35.5) g/dL RDW (11.7-14.4) % Plt Count (182-369) x10^3/uL MPV (9.4-12.3) fL Gran % (34.0-71.1) % Immature Gran % (Auto) (0.001-0.429) % Nucleat RBC Rel Count (0.00-0.2) % Eos # (Auto) (0.04-0.36) x10^3/uL Immature Gran # (Auto) (0.001-0.031) x10^3u/L Absolute Lymphs (auto) (1.18-3.74) x10^3/uL Absolute Monos (auto) (0.24-0.86) x10^3/uL Absolute Nucleated RBC (0.00-0.012) x10^3u/L Lymphocytes % (19.3-51.7) % Monocytes % (4.7-12.5) % Eosinophils % (0.7-5.8) % Basophils % (0.1-1.2) % Absolute Granulocytes (1.56-6.13) x10^3/uL Basophils # (0.01-0.08) x10^3/uL D-Dimer < 0.19 (0.0-0.50) mg/L Sodium (135-145) mmol/L Potassium (3.5-5.1) mmol/L Chloride (98-107) mmol/L Carbon Dioxide (22-30) mmol/L Anion Gap (5-15) MEQ/L BUN (7-17) mg/dL Creatinine (0.52-1.04) mg/dL Estimated GFR ML/MIN Glucose (74-106) mg/dL Calcium (8.4-10.2) mg/dL Total Bilirubin (0.2-1.3) mg/dL AST (14-36) U/L ALT (0-35) U/L Alkaline Phosphatase (38-126) U/L Creatine Kinase (30-135) U/L Troponin I (0.000-0.033) ng/mL NT-Pro-B Natriuret Pep (<300) pg/mL Serum Total Protein (6.3-8.2) g/dL Albumin (3.5-5.0) g/dL Urine Color Yellow (Yellow) Urine Appearance Clear (Clear) Urine pH 6.5 (4.6-8.0) Ur Specific [place] 1.010 (1.005-1.030) Urine Protein Negative (Negative) Urine Glucose (UA) Negative (Negative) mg/dL Urine Ketones Negative (Negative) Urine Blood Large A (Negative) Urine Nitrite Negative (Negative) Urine Bilirubin Negative (Negative) Urine Urobilinogen 0.2 (0.2) mg/dL Ur Leukocyte Esterase Small A (Negative) U Hyaline Cast (Auto) NONE SEEN (0-2) /LPF Urine Microscopic RBC 0-2 (0-5) /HPF Urine Microscopic WBC 11-20 A (0-5) /HPF Ur Epithelial Cells Few (None Seen) /HPF Urine Bacteria Rare A (None Seen) /HPF Urine Culture Reflexed YES (NO) Urine HCG, Qual NEGATIVE (NEGATIVE) 02/01/25 02/01/25 02/01/25 Range/Units 21:52 21:52 21:52 WBC 8.8 (3.98-10.04) x10^3/uL RBC 4.78 (3.93-5.22) x10^6/uL Hgb 14.2 (11.2-15.7) g/dL Hct 42.8 (34.1-44.9) % MCV 89.5 (79.4-94.8) fL MCH 29.7 (25.6-32.2) pg MCHC 33.2 (32.2-35.5) g/dL RDW 12.8 (11.7-14.4) % Plt Count 270 (182-369) x10^3/uL MPV 11.0 (9.4-12.3) fL Gran % 63.4 (34.0-71.1) % Immature Gran % (Auto) 0.1 (0.001-0.429) % Nucleat RBC Rel Count 0.0 (0.00-0.2) % Eos # (Auto) 0.04 (0.04-0.36) x10^3/uL Immature Gran # (Auto) 0.01 (0.001-0.031) x10^3u/L Absolute Lymphs (auto) 2.64 (1.18-3.74) x10^3/uL Absolute Monos (auto) 0.46 (0.24-0.86) x10^3/uL Absolute Nucleated RBC 0.00 (0.00-0.012) x10^3u/L Lymphocytes % 30.2 (19.3-51.7) % Monocytes % 5.3 (4.7-12.5) % Eosinophils % 0.5 L (0.7-5.8) % Basophils % 0.5 (0.1-1.2) % Absolute Granulocytes 5.56 (1.56-6.13) x10^3/uL Basophils # 0.04 (0.01-0.08) x10^3/uL D-Dimer (0.0-0.50) mg/L Sodium 138 (135-145) mmol/L Potassium 3.6 (3.5-5.1) mmol/L Chloride 105 (98-107) mmol/L Carbon Dioxide 22 (22-30) mmol/L Anion Gap 14.0 (5-15) MEQ/L BUN 13 (7-17) mg/dL Creatinine 0.73 (0.52-1.04) mg/dL Estimated GFR 111.3 ML/MIN Glucose 95 (74-106) mg/dL Calcium 9.3 (8.4-10.2) mg/dL Total Bilirubin 0.50 (0.2-1.3) mg/dL AST 25 (14-36) U/L ALT 25 (0-35) U/L Alkaline Phosphatase 89 (38-126) U/L Creatine Kinase 55 (30-135) U/L Troponin I < 0.012 (0.000-0.033) ng/mL NT-Pro-B Natriuret Pep 49.5 (<300) pg/mL Serum Total Protein 8.2 (6.3-8.2) g/dL Albumin 4.7 (3.5-5.0) g/dL Urine Color (Yellow) Urine Appearance (Clear) Urine pH (4.6-8.0) Ur Specific [place] (1.005-1.030) Urine Protein (Negative) Urine Glucose (UA) (Negative) mg/dL Urine Ketones (Negative) Urine Blood (Negative) Urine Nitrite (Negative) Urine Bilirubin (Negative) Urine Urobilinogen (0.2) mg/dL Ur Leukocyte Esterase (Negative) U Hyaline Cast (Auto) (0-2) /LPF Urine Microscopic RBC (0-5) /HPF Urine Microscopic WBC (0-5) /HPF Ur Epithelial Cells (None Seen) /HPF Urine Bacteria (None Seen) /HPF Urine Culture Reflexed (NO) Urine HCG, Qual (NEGATIVE) - Departure Clinical Impression: UTI (urinary tract infection) Chest pain Qualifiers: Chest pain type: unspecified Qualified Code(s): R07.9 - Chest pain, unspecified Condition: Stable Critical Care Time: No Referrals: FREDA BLACKBURN NP [Primary Care Provider, [facility]] - Follow up/PCP as directed OLMAN ZAMORA [CONSULTING PHYSICIAN, CARDIOLOGY] - Follow up/PCP as directed Instructions: Chest Pain (DC), Urinary tract infections in adults Forms: Work/School Release Form Prescriptions: Cephalexin Mh 500 mg [Keflex 500 mg] 500 mg PO TID 7 Days #21 cap
[2025-02-01 21:44] VITALS: TEMP 97.6
[2025-02-01 21:55] LABS: BASOPHIL % 0.5 % (0.1-1.2); Basophil (Absolute #) 0.04 x10^3/uL (0.01-0.08); Eosinophil (Absolute #) 0.04 x10^3/uL (0.04-0.36); Hematocrit 42.8 % (34.1-44.9); Hemoglobin 14.2 g/dL (11.2-15.7); IMMATURE GRAN # 0.01 x10^3u/L (0.001-0.031); IMMATURE GRAN % 0.1 % (0.001-0.429); Lymphocyte (Absolute #) 2.64 x10^3/uL (1.18-3.74); Mean Corpuscular Hemoglobin 29.7 pg (25.6-32.2); Mean Corpuscular Hgb Concent. 33.2 g/dL (32.2-35.5); Monocyte (Absolute #) 0.46 x10^3/uL (0.24-0.86); NUCLEATED RBC # 0.00 x10^3u/L (0.00-0.012); NUCLEATED RBC % 0.0 % (0.00-0.2); Platelet Count 270 x10^3/uL (182-369); Red Blood Count 4.78 x10^6/uL (3.93-5.22); White Blood Count 8.8 x10^3/uL (3.98-10.04)
[2025-02-01 22:22] LABS: CK-Creatinine Phosphokinase 55 U/L (30-135); Calcium 9.3 mg/dL (8.4-10.2); Carbon Dioxide 22 mmol/L (22-30); Creatinine 1 0.73 mg/dL (0.52-1.04); EST GLOMERULAR FILTRATION RATE 111.3 ML/MIN; Glucose 95 mg/dL (74-106); Potassium 3.6 mmol/L (3.5-5.1); SGOT/AST 25 U/L (14-36); SGPT/ALT 25 U/L (0-35); TROPONIN < 0.012 ng/mL (0.000-0.033); Total Protein 8.2 g/dL (6.3-8.2)
[2025-02-01 22:43] LABS: HCG URINE TEST NEGATIVE (NEGATIVE)
[2025-02-01 22:50] LABS: Glucose, Urine Negative (Negative); Protein,Urine Dip Negative (Negative); RBC 0-2 /HPF (0-5)
[2025-02-01] MEDS ORDERED: KEFLEX 500 MG ONE (23:05)
[2025-02-01] MEDS: KEFLEX 500 MG PO ONE (23:05)
[2025-02-01 23:23] VITALS: BP 120/72; PULSE 71; RESP 18; O2SAT 98
--- NOTE | 2025-02-02 07:40 | XRAY ---
Indication: Chest pain. Comparison: None Portable chest demonstrates normal heart, lungs, and bony thorax with incidental small left midlung calcified granuloma.
== END 2025-02-01 23:24 | disposition home or self-care (01) ==
LOC: ED 21:31
DX: N39.0 Urinary tract infection, site not specified (principal); R07.9 Chest pain, unspecified; Z79.899 Other long term (current) drug therapy; Z72.0 Tobacco use

== ENCOUNTER 2025-02-25 18:11 | Emergency (ER) | payer OTHER ==
[2025-02-25 18:35] VITALS: TEMP 98.2
--- NOTE | 2025-02-25 19:08 | ERPHSYRPT ---
- History of Present Illness Time Seen by Provider: 02/25/25 19:04 Source: patient Exam Limitations: no limitations Patient Subjective Stated Complaint: neck pain x 1 week on and off and today has been the worst, patient states it is a sore/stiff feeling Triage Nursing Assessment: patient presents to ed via private vehicle, patient able to ambulate into ed without complication, patient alert and oriented x 4, skin p/w/d, patient able to move neck without any restrictions, patient denies sob/chest pain at this time, vitals wnl Physician History: Patient is a 34-year-old female current smoker history of anxiety and depression otherwise generally healthy presents to our ED for evaluation of pain at C7. No trauma no fever. Patient states the area has been sore for the past week. Patient states the pain has been intermittent however somewhat worse today. Patient took ibuprofen at 3 PM. Patient declined additional pain medication. Patient states she just wants to make sure that it is nothing serious. No tr auma. No fever. No headache. No neurologic symptomology. No upper extremity numbness tingling or weakness. No chest pain or shortness of breath. Patient otherwise feels well. She voices no other complaints or concerns at this time. Patient declined pain medication Portions of this note were created with voice recognition technology. There may be grammatical, spelling, punctuation or sound alike errors Timing/Duration: week(s) (1 week) Severity: moderate Modifying Factors: Improves With: other (Palpation at C7 reproduces pain) Associated Symptoms: denies symptoms Allergies/Adverse Reactions: No Known Drug Allergies Allergy (Verified 02/25/25 18:26) Home Medications: Sertraline HCl 50 mg [Zoloft 50 mg Tablet] 50 mg PO DAILY 02/25/25 [History] Hx Tetanus, Diphtheria Vaccination/Date Given: Yes Hx Influenza Vaccination/Date Given: No Hx Pneumococcal Vaccination/Date Given: No Travel Risk - International Travel Have you traveled outside of the country in past 3 weeks: No - Emerging Infectious Disease Are you exhibiting symptoms associated with any current EIDs: No - Review of Systems All Other Systems: Reviewed and Negative - Past Medical History Pertinent Past Medical History: Yes Neurological History: No Pertinent History ENT History: No Pertinent History Cardiac History: No Pertinent History Respiratory History: No Pertinent History Endocrine Medical History: No Pertinent History Musculoskeletal History: No Pertinent History GI Medical History: No Pertinent History History: No Pertinent History Psycho-Social History: Anxiety, Depression Female Reproductive Disorders: No Pertinent History - Past Surgical History Past Surgical History: Yes Neuro Surgical History: No Pertinent History Cardiac: No Pertinent History Respiratory: No Pertinent History Gastrointestinal: No Pertinent History Genitourinary: No Pertinent History Musculoskeletal: No Pertinent History Female Surgical History: Section Other Surgical History: previous sections x3 - Female History Hx Last Menstrual Period: 02/10/25 Hx Now: No - Social History Smoking Status: Current every day smoker Exposure to second hand smoke: Yes Drug Use: none - Social Determinants of Health Will the patient participate in the screening: Yes Do you worry about a steady place to live?: No Do you have any problems with any of the following?: No known problems In the past 12 months,have you had to go without utilities?: No Transportation Issues: No Has anyone in your support network made you feel unsafe?: No Have you or anyone in your house had to go w/o enough food: No - Nursing Vital Signs Nursing Vital Signs: Initial Vital Signs Temperature 98.2 F 02/25/25 18:12 Pulse Rate 72 02/25/25 18:12 Respiratory Rate 14 02/25/25 18:12 O2 Sat by Pulse Oximetry 96 02/25/25 18:12 Pain Scale Pain Intensity 7 - Physical Exam General Appearance: no apparent distress, alert Eye Exam: eyes nml inspection Ears, Nose, Throat Exam: normal ENT inspection Neck Exam: normal inspection, full range of motion Respiratory Exam: normal breath sounds, airway intact, No respiratory distress Cardiovascular Exam: regular rate/rhythm, normal peripheral pulses Gastrointestinal/Abdomen Exam: No tenderness, No mass Back Exam: normal inspection, normal range of motion, No CVA tenderness, No vertebral tenderness Extremity Exam: normal inspection, normal range of motion, pelvis stable Neurologic Exam: alert, oriented x 3, cooperative, normal mood/affect, sensation nml, No motor deficits Skin Exam: normal color, warm, dry, No rash Lymphatic Exam: No adenopathy SpO2 Interpretation: normal SpO2: 96 O2 Delivery: Room Air - Course Nursing assessment & vital signs reviewed: Yes - CT Exams Cervical Spine CT Interpretation: Tele-radiologist Report (Normal C-spine) Ordered Tests: Active Orders 24 hr Category Date Time Status CERVICAL SPINE WO CONTRAST [CT] Stat Exams 02/25/25 19:02 Taken - Progress Progress: improved Progress Note: Patient is a 34-year-old female current smoker history of anxiety and depression otherwise generally healthy presents to our ED for evaluation of pain at C7. No trauma no fever. Patient states the area has been sore for the past week. Patient states the pain has been intermittent however somewhat worse today Physical exam reveals tenderness to palpation over the prominence of C7. Overlying soft tissue intact. Palpation reproduces pain. CT scan negative for acute pathology. Patient declined pain medication. Patient's pain is emanating from contused soft tissue over the C7 prominence. Patient advised to consider a different sleeping posture and even a specialized pillow to avoid pressure on this particular location of her neck. We will discharge patient home. Patient agrees to follow-up with a primary care doctor within 48 hours. She voices no other complaints or concerns at this time. Portions of this note were created with voice recognition technology. There may be grammatical, spelling, punctuation or sound alike errors History obtained from patient Differential diagnosis includes fracture, skin contusion, ligamentous injury Complexity of problems addressed is moderate acute complicated. No critical care time. Complex of data reviewed and analyzed is moderate. Test ordered chest reviewed results analyzed and correlated clinically with history and physical exam. Risk of complication and or risk of morbidity/mortality of patient management is low. Vital stable. Time spent to discharge patient is approximately 15 minutes. Plan of care established for shared decision making. No social determinants of health present to impede follow-up. Portions of this note were created with voice recognition technology. There may be grammatical, spelling, punctuation or sound alike errors 02/25/25 20:50 Counseled pt/family regarding: diagnosis, need for follow-up, rad results - Departure Departure Disposition: Home Clinical Impression: Neck contusion Condition: Stable Critical Care Time: No Referrals: FREDA BLACKBURN NP [Primary Care Provider, [facility]] - Follow up/PCP as directed Additional Instructions: Discharge/Care Plan NIELS OATES was seen on 02/25/25 in the Emergency Room. The patient was counseled regarding Diagnosis,Lab results, Imaging studies, need for follow up and when to return to the Emergency Room. Prescriptions given: Discharge Note I have spoken with the patient and/or caregivers. I have explained the patient's condition, diagnosis and treatment plan based on the information available to me at this time. I have answered the patient's and/or caregiver's questions and addressed any concerns. The patient and/or caregivers have as good understanding of the patient's diagnosis, condition and treatment plan as can be expected at this point. The vital signs have been stable. The patient's condition is stable and appropriate for discharge from the emergency department. The patient will pursue further outpatient evaluation with the primary care physician or other designated or consulting physician as outlined in the discharge instructions. The patient and/or caregivers are agreeable to this plan of care and follow-up instructions have been explained in detail. The patient and/or caregivers have received these instruction. The patient/and or caregivers are aware that any significant change in condition or worsening of symptoms should prompt an immediate return to this or the closest emergency department or call 911.
[2025-02-25 20:59] VITALS: BP 112/73; PULSE 71; RESP 17; O2SAT 98
--- NOTE | 2025-02-26 08:55 | XRAY ---
Indication: Pain. No known injury. Multiple contiguous axial images obtained through the cervical spine. Sagittal and coronal reformatted images obtained. Comparison: None Axial images negative for acute fracture, suspicious bony lesions, or spinal canal stenosis. Facets are symmetric. Sagittal and coronal reformatted images demonstrates lordotic straightening, positional versus paraspinal spasm. Vertebral body heights/disc spaces maintained. No acute compression fracture or jumped facet. Normal appearing craniocervical junction. Visualized noncontrasted soft tissues including lung apices are unremarkable. Impression: Lordotic straightening, positional versus paraspinal spasm. Remaining CT cervical spine is normal.
== END 2025-02-25 20:58 | disposition home or self-care (01) ==
LOC: ED 18:11
DX: S10.93XA Contusion of unspecified part of neck, initial encounter (principal); Z79.899 Other long term (current) drug therapy; Z72.0 Tobacco use